=== PATIENT | female | born 1980 | race Caucasian/White ===

== ENCOUNTER 2019-05-08 08:22 | Emergency (ER) | payer SELFPAY | END 2019-05-08 09:20 | disposition home or self-care (01) | LOC: MADERS 08:22 | DX: J11.1 Influenza due to unidentified influenza virus with other respiratory manifestations (principal); I10 Essential (primary) hypertension; E66.9 Obesity, unspecified; F41.9 Anxiety disorder, unspecified; F31.9 Bipolar disorder, unspecified; F17.210 Nicotine dependence, cigarettes, uncomplicated | CPT/HCPCS: 87804; 99283 ==